=== PATIENT | female | born 1990 | race Caucasian/White ===

== ENCOUNTER 2023-09-26 08:12 | Emergency (ER) | payer OTHER, SELFPAY ==
[2023-09-26] VITALS (12 sets, daily range): BP systolic 121–132; BP diastolic 67–79; PULSE 73–96; RESP 11–24; TEMP 36.4; O2SAT 100
--- NOTE | ~2023-09-26 | CT_ITS ---
EXAMINATION: CTA chest PE protocol DATE: 09/26/2023 10:10 AUDIO VISUAL TECHNICIAN INDICATION: Left-sided chest pain. Elevated d-dimer. TECHNIQUE: Computed tomographic angiography (CTA) of the chest was performed with 100 mL Omnipaque-35 0 intravenous contrast. The dose-length product was 245.34 mGy-cm. Maximum intensity projection 3D-re constructions of the aorta and other arteries were constructed by the technologist on a separate work station. COMPARISON: None. FINDINGS: Study technically limited due to contrast bolus timing. No large central pulmonary embolism . Heart size normal. No significant pleural or pericardial effusion. No thoracic lymphadenopathy. Upp er abdomen is unremarkable. No focal airspace disease. No soft tissue abnormality. IMPRESSION: 1. No acute cardiopulmonary disease. No large central pulmonary embolism. Evaluation of the periphera l pulmonary arteries limited due to contrast bolus timing. Reviewed, dictated and finalized at location A. O VISUAL TECHNICIAN IMPRESSION: 1. No acute cardiopulmonary disease. No large central pulmonary embolism. Evalu ation of the peripheral pulmonary arteries limited due to contrast bolus timing .
--- NOTE | ~2023-09-26 | XR_ITS ---
EXAMINATION: XR chest 1V portable 09/26/2023 08:36 INDICATION: Chest pain PROCEDURE: AP portable chest COMPARISON: No prior studies for comparison. FINDINGS: The lungs are clear. The cardiomediastinal silhouette is within normal limits. There are no pleural effusions. There is no pneumothorax suspected. IMPRESSION: 1: NO ACUTE CARDIOPULMONARY DISEASE. Reviewed, dictated and finalized at location A. GER OPERATIONS
--- NOTE | 2023-09-26 08:40 | ED.ARRPALP ---
HPI - Arrhythmia/Palpitations General Chief Complaint: Arrhythmia/Palpitations Stated Complaint: chest pain, racing heart Time Seen by Provider: 09/26/23 08:19 History of Present Illness HPI narrative: 33-year-old female presenting to the emergency department for evaluation of left-sided chest pain that she states has been ongoing constantly since yesterday. Patient had an episode of SVT yesterday and was at [facility]. Patient states that she did receive medications that converted her back to normal sinus rhythm. Last night patient states that she had some increased anxiety and feeling her heart was racing again so patient called EMS and presented to the emergency department by EMS. Upon arrival to emergency department if patient states that she is still having left-sided chest pain. Patient denies any associated shortness of breath. Patient denies any prior cardiac history and denies any use of methamphetamine or cocaine, patient does admit to THC use, patient denies daily alcohol use. Related Data Allergies Allergy/AdvReac Type Severity Reaction Status Date / Time Penicillins Allergy Unknown Verified 09/26/23 08:25 Review of Systems Review of Systems: All systems reviewed & are unremarkable except as noted in HPI and below Exam Narrative: APPEARANCE: Well appearing, no pain, no distress, well-nourished. HEAD: normocephalic, atraumatic. EYES: PERRLA/EOMI, conjunctivae clear. NOSE: Normal no drainage EARS:TMS clear with good light reflex. THROAT: Pharynx clear, no exudate. NECK: Supple. No adenopathy, no masses. RESPIRATORY: Airway patent, respirations nonlabored. Clear to auscultation bilaterally, no rales, rhonchi, wheezing. CARDIOVASCULAR: Regular rate and rhythm without murmurs rubs or gallops. ABDOMINAL: Soft, nontender, nondistended, normal bowel sounds MUSCULOSKELETAL: Moves all extremities. Strength/ROM intact, No edema, No calf tenderness. NEURO: Alert. Cranial nerves II through XII intact. Grossly intact SKIN: Warm, dry. Normal Color Course Course Emergency Course: 33 old female presenting to the emergency department for evaluation of persistent left-sided chest pain. EKG showed no evidence of acute STEMI in patient's troponin was negative. Patient states the pain has been ongoing for greater than 6 hours and troponin was still negative. Patient is afebrile with no leukocytosis and a stable hemoglobin, patient did have an elevated D-dimer but CTA showed no evidence of pulmonary embolism. Patient did test positive for cannabinoids. Patient and family were updated on the results of her workup. Patient described a possible viral syndrome the day before symptoms started. Symptoms may be consistent with pleurisy, no concern for ACS or pulmonary embolism. Patient was encouraged to have close follow-up with primary care physician and was educated on reasons to return to the emergency department. Vital Signs Vital signs: Vital Signs Temperature 97.5 F L 09/26/23 08:11 Pulse Rate 79 09/26/23 08:11 Respiratory Rate 14 09/26/23 08:11 Blood Pressure 122/77 09/26/23 08:11 Pulse Oximetry 100 09/26/23 08:11 Oxygen Delivery Room Air 09/26/23 08:11 Temperature 97.5 F L 09/26/23 08:11 Pulse Rate 81 09/26/23 10:30 Respiratory Rate 21 H 09/26/23 10:30 Blood Pressure 132/67 09/26/23 09:32 Pulse Oximetry 100 09/26/23 10:30 Oxygen Delivery Room Air 09/26/23 08:11 MDM - Arrhythmia/Palpitations Lab Data Attestation: I reviewed the patient's lab results. 09/26/23 08:47 09/26/23 08:47 Labs: Lab Results 09/26/23 09/26/23 Range/Units 08:47 08:49 WBC 6.9 (4.5-10.0) K/mm3 RBC 4.02 L (4.2-5.4) M/mm3 Hgb 11.8 L (12.0-15.0) g/dL Hct 34.8 L (37.0-47.0) % MCV 86.6 (80-100) fl MCH 29.4 (26-34) pg MCHC 33.9 (32-36) g/dl RDW 13.0 (11.5-14.5) % Plt Count 213 (150-375) k/mm3 MPV 11.8 H (7.4-10.4) fl Immatu
[2023-09-26] MEDS: SODIUM CHLORIDE 0.9% IV 1,000 ML 999 ML IV CONT (08:54)
[2023-09-26 08:59] LABS: Basophils Absolute Auto 0.1 K/mm3 (0.0-0.1); Basophils Percent Auto 1.2 % (0.2-1.2); Eosinophils Absolute Auto 0.3 K/mm3 (0-0.3); Eosinophils Percent Auto 4.9 % (0-4.4); Hematocrit 34.8 % (37.0-47.0); Hemoglobin 11.8 g/dL (12.0-15.0); Immature Granulocyte Absolute 0.02 K/mm3 (0.00-0.031); Immature Granulocyte Percent A 0.3 % (0-0.5); Lymphocytes Absolute Auto 1.96 K/mm3 (0.9-3.2); Lymphocytes Percent Auto 28.4 % (18.3-44.2); Mean Corpuscular HGB Conc 33.9 g/dl (32-36); Mean Corpuscular Hemoglobin 29.4 pg (26-34); Mean Corpuscular Volume 86.6 fl (80-100); Mean Platelet Volume 11.8 fl (7.4-10.4); Monocytes Absolute Auto 0.5 K/mm3 (0.1-0.6); Monocytes Percent Auto 7.1 % (2.6-8.5); Neutrophils Percent Auto 58.1 % (45.5-73.1); Platelet Count Result 213 k/mm3 (150-375); Red Blood Count 4.02 M/mm3 (4.2-5.4); White Blood Count 6.9 K/mm3 (4.5-10.0)
[2023-09-26 09:07] LABS: Alanine Aminotransferase 14 U/L (6-35); Albumin Level 4.1 g/dL (3.5-5.1); Alkaline Phosphatase 73 U/L (38-126); Anion Gap 9 mmol/L (8-16); Aspartate Amino Transferase 23 U/L (14-36); Bilirubin,Total 0.9 mg/dL (0.2-1.3); Blood Urea Nitrogen 11 mg/dL (7-17); Calcium 8.8 mg/dL (8.4-10.2); Carbon Dioxide 21 mmol/L (22-30); Chloride 108 mmol/L (98-107); Estimated CRCL calculation 105 ml/min; Estimated Glomerular Filt Rate > 60; Glucose 89 mg/dL (65-110); Magnesium 1.8 mg/dL (1.6-2.3); Potassium 3.3 mmol/L (3.4-5.0); Sodium 138 mmol/L (137-145)
[2023-09-26 09:18] LABS: D Dimer 0.58 ug/mL (<0.48); Troponin I < 0.012 ng/mL (0.000-0.034)
[2023-09-26 09:20] LABS: Amphetamine Screen Urine Negative (Negative); Barbiturate Screen Urine Negative (Negative); Benzodiazepines Screen Urine Negative (Negative); Cannabinoid Screen Urine Positive (Negative); Cocaine Screen Urine Negative (Negative); Methadone Screen Urine Negative (Negative); Opiate Screen Urine Negative (Negative); Phencyclidine Screen Urine Negative (Negative)
--- NOTE | 2023-09-26 09:46 | PC.NURSE ---
PATIENT REFUSED COVID SWAB. WAS TESTED YESTERDAY AT [facility] AND IT WAS NEGATIVE. PROVIDER AWARE
[2023-09-26 09:47] LABS: Thyroid Stimulating Hormone Reflex 0.417 uIU/mL (0.465-4.68)
[2023-09-26 10:30] LABS: Free T4 Free Thyroxine Reflex 1.36 ng/dL (0.78-2.19)
--- NOTE | 2023-09-27 09:18 | ECG_ITS ---
Measurements Intervals [place] Rate: 75 P: 49 AL: 133 QRS: 73 QRSD: 98 T: 61 QT: 408 QTc: 459 Interpretive Statements SINUS RHYTHM POSSIBLE LEFT ATRIAL ENLARGEMENT BASELINE WANDER- I, II BORDERLINE ECG NO PREVIOUS ECG AVAILABLE FOR COMPARISON Electronically Signed On 09-27-2023 10:01:48 SOCIAL SCIENTIST by Max Benites D.O.
== END 2023-09-26 11:05 | disposition home or self-care (01) ==
PROVIDERS: Emergency Provider Emergency Medicine
DX: R07.9 Chest pain, unspecified (principal); R94.31 Abnormal electrocardiogram [ECG] [EKG]
CPT/HCPCS: 36415; 71045; 71275; 80053; 80307; 83735; 84439; 84443; 84480; 84484; 85025; 85380; 93005; 99284; J7030; Q9967

== ENCOUNTER 2023-10-14 08:20 | Emergency (ER) | payer OTHER, SELFPAY ==
[2023-10-14 08:28] VITALS: BP 117/74; PULSE 87; RESP 14; TEMP 37.5; O2SAT 100
--- NOTE | 2023-10-14 08:51 | ED.GENADULT ---
HPI - General Adult General Chief complaint: Skin/Abscess/Foreign Body Stated complaint: bump under chin Time Seen by Provider: 10/14/23 08:52 Source: patient, RN notes reviewed and old records reviewed Mode of arrival: ambulatory Limitations: no limitations History of Present Illness HPI narrative: 33-year-old female presents to the [facility] with concerns for a bump under her chin since yesterday reports it is being very painful. Patient reports that she called her primary care provider and was told to be evaluated. Reports it is feeling very hot. Reports that it his ?doubled in size since yesterday. Onset (ago): day(s) (1) Related Data Home Medications Medication Instructions Recorded Confirmed aspirin 81 mg tablet,delayed 81 mg PO DAILY 10/14/23 10/14/23 release (Enteric Coated Aspirin) diltiazem HCl 30 mg tablet 30 mg PO TID 10/14/23 10/14/23 hydroxyzine pamoate 25 mg capsule 25 mg PO TID 10/14/23 10/14/23 Allergies Allergy/AdvReac Type Severity Reaction Status Date / Time amoxicillin Allergy Severe Swelling Verified 10/14/23 08:54 of Lip/Tongue/Throat Penicillins Allergy Severe Swelling Verified 10/14/23 08:53 of Lip/Tongue/Throat Review of Systems Review of Systems: All systems reviewed & are unremarkable except as noted in HPI and below Constitutional: Constitutional: Reports no additional constitutional complaints Eyes: Eyes: Reports no additional eye complaints ENT: Reports as per HPI Cardiovascular: Cardiovascular: Reports no additional cardiovascular complaints, Denies chest pain and Denies dyspnea Respiratory: Respiratory: Reports no additional respiratory complaints, Denies chest congestion, Denies cough and Denies dyspnea Gastrointestinal: Gastrointestinal: Reports no additional gastrointestinal complaints, Denies abdominal pain, Denies nausea and Denies vomiting Musculoskeletal: Musculoskeletal: Reports no additional musculoskeletal complaints Integumentary/Breasts: Skin/Breast: Reports system reviewed and no additional complaints, except as docu Neurologic: Reports system reviewed and no additional complaints, except as documented Psychiatric: Psychiatric: Reports no additional psychiatric complaints Allergic/Immunologic: Allergic/Immunologic: Reports no additional allergic/immunologic complaints [facility] Social History Social History Substance use type: marijuana Living arrangements: with family Gender identity (if verbalized by the patient): Female Comments At the time of my signature, I reviewed and agree with the nursing past medical, surgical, social, and family history. There is no relevant family history pertinent to the patient complaint. Exam Const: General: cooperative, healthy appearing, no acute distress, well developed, alert, anxious, uncomfortable and well nourished Nutritional Appearance: well nourished Orientation/consciousness: patient oriented x3 Limitations: no limitations HENMT: Head: normal to inspection Ears: hearing grossly normal bilaterally, external ears normal, TM's normal bilaterally, EAC's normal, mastoids normal and no periauricular adenopathy Face/Nose/Sinus: Normal external nose present, Normal nares present, Normal nasal mucous membranes and turbinates present, normal facial exam and face symmetric Face and sinus: normal facial exam and face symmetric Mouth: Yes Normal oral and palatal mucosa present, Yes lip normal, Yes moist mucous membranes and No muffled voice Throat: posterior oropharynx normal, tonsils normal, uvula midline and no uvular edema Eyes: General: appearance normal, both eyes and all related structures Alignment and Position: alignment normal Periorbital: periorbital findings normal Pupils: Equal, round and reactive pupils present EOM: EOMs intact bilaterally Neck: Neck: normal visual inspection, full ROM, no lymphadenopathy and no meningeal signs
== END 2023-10-14 09:07 | disposition short-term general hospital (02) ==
LOC: EXPBETH 08:24
PROVIDERS: Emergency Provider Nurse Practitioner
DX: K11.9 Disease of salivary gland, unspecified (principal); F12.90 Cannabis use, unspecified, uncomplicated; Z79.82 Long term (current) use of aspirin
CPT/HCPCS: 99212; G0463

== ENCOUNTER 2023-10-24 14:34 | Emergency (ER) | payer OTHER, SELFPAY ==
[2023-10-24 14:58] VITALS: BP 142/85; PULSE 94; RESP 20; TEMP 37.4; O2SAT 100
--- NOTE | 2023-10-24 15:28 | ED.DENTAL ---
HPI - Dental/Oral General Chief complaint: Dental/Oral Stated complaint: [place] tooth causing pain Time Seen by Provider: 10/24/23 15:28 Source: patient, RN notes reviewed and old records reviewed Mode of arrival: ambulatory Limitations: no limitations History of Present Illness HPI Narrative: 33 year old female who presents to [facility] care with complaints of dental pain to left lower most posterior molar for 1 month duration. Patient was seen her 10 days ago for swollen lymph node to left neck but reports coldn't find cause. Patient states that she does have dentist to follow up with. Patient reports that she has not taken any OTC medications for her discomfort, nor has she applied any ice, doesn't like to take medication she states MD Complaint: tooth pain Location: Tooth # (17) Onset (ago): month(s) (1) Severity: moderate Severity scale (1-10): 6 Treatment prior to arrival: none Related Data Home Medications Medication Instructions Recorded Confirmed aspirin 81 mg tablet,delayed 81 mg PO DAILY 10/14/23 10/14/23 release (Enteric Coated Aspirin) diltiazem HCl 30 mg tablet 30 mg PO TID 10/14/23 10/14/23 hydroxyzine pamoate 25 mg capsule 25 mg PO TID 10/14/23 10/14/23 Allergies Allergy/AdvReac Type Severity Reaction Status Date / Time amoxicillin Allergy Severe Swelling Verified 10/14/23 08:54 of Lip/Tongue/Throat Penicillins Allergy Severe Swelling Verified 10/14/23 08:53 of Lip/Tongue/Throat Review of Systems Review of Systems: CONSTITUTIONAL: Denies fever, chills, or sweats.pain to left lower most posterior molar with noted caries to tooth and some facial pain voiced also ENT: Denies rhinorrhea, congestion, sore throat, or otalgia. Reports dental pain CARDIOVASCULAR: Denies chest pain, palpitations, or edema. RESPIRATORY: Denies cough or dyspnea. SKIN: Denies rash or itching. MUSCULOSKELETAL: Denies myalgia. NEUROLOGIC: Denies headache All systems reviewed & are unremarkable except as noted in HPI and below PMFSH Past Medical History Medical History (Updated 10/25/23 @ 22:41 by Lisette Fonseca NP) Anxiety Hypertension SVT (supraventricular tachycardia) Surgical History Surgical History (Updated 10/25/23 @ 22:41 by Lisette Fonseca NP) History of partial hysterectomy Social History Social History (Updated 10/25/23 @ 22:42 by Lisette Fonseca NP) Smoking status: Unknown if ever smoked Substance use type: marijuana Living arrangements: with family Gender identity (if verbalized by the patient): Female Comments At time of signature, agree with nursing past medical, surgical, social and family history. There is no relevant family history pertinent to the presenting complaint Exam Narrative: GENERAL: Well-appearing, well-nourished, and in no acute distress. HEAD: Normocephalic, atraumatic. EYES: PERRLA and EOMI. ENT: Nares clear, no rhinorrhea or epistaxis. Mucous membranes moist. Left lower most posterior molar#17 with noted caries, some redness to gum and swelling, no trismus or any Hung angina noted. Reports some discomfort to the left side of her face with no swelling noted. NECK: Supple.no lymphadenopathy CHEST: Clear to auscultation. No respiratory distress. no cough SAO2 100% on room air HEART: Regular rate and rhythm. No murmur heard. Normal peripheral pulses. SKIN: Warm, dry, no rash. NEURO: No focal deficits. Alert and oriented x3. Course Course Emergency Course: Patient is aware of diagnosis, understands and agrees to treatment plan. Anticipatory guidance given. Patient agrees to follow-up as directed and is aware of reasons to seek care at the emergency department. Portions of this record may have been created with voice recognition software Level of Care: Express Care Visit Vital Signs Vital signs: Vital Signs Temperature 37.4 C 10/24/23 14:58 Pulse Rate 94 10/24/23 14:58 Respiratory Rate 20 10/24/23 14:58 Blood Pr
== END 2023-10-24 15:58 | disposition home or self-care (01) ==
PROVIDERS: Emergency Provider Registered Nurse
DX: K04.7 Periapical abscess without sinus (principal); I10 Essential (primary) hypertension; F41.9 Anxiety disorder, unspecified; Z79.82 Long term (current) use of aspirin; Z90.711 Acquired absence of uterus with remaining cervical stump; F12.90 Cannabis use, unspecified, uncomplicated
CPT/HCPCS: 99213; G0463

== ENCOUNTER 2024-03-11 08:15 | Emergency (ER) | payer OTHER, SELFPAY ==
--- NOTE | ~2024-03-11 | XR_ITS ---
EXAMINATION: XR chest 2V DATE: 03/11/2024 08:53 INDICATION: Chest pain and weakness TECHNIQUE: PA and lateral views of the chest were obtained. COMPARISON: Chest radiograph dated 09/26/2023 FINDINGS: There are bands resulting in artifactual appearance of nodular opacities project over the bilateral u pper lungs on the initial image. These removed and the lungs are clear on the subsequent image with n o focal airspace opacities, pulmonary edema, pleural effusion or pneumothorax. The cardiomediastinal silhouette is normal. Visualized bones and soft tissues are unremarkable. IMPRESSION: 1. Normal chest radiograph. Reviewed, dictated and finalized at location A. IMPRESSION: 1. Normal chest radiograph.
--- NOTE | 2024-03-11 08:21 | ECG_ITS ---
Test Date: 2024-03-11 08:24:11 Measurements Intervals [place] Rate: 67 P: 58 CO: 149 QRS: 66 QRSD: 84 T: 48 QT: 414 QTc: 439 Interpretive Statements SINUS RHYTHM NORMAL ECG No previous ECG available for comparison Electronically Signed On 03-11-2024 10:00:25 CDT by Max Benites D.O.
[2024-03-11 08:28] VITALS: BP 129/82; PULSE 88; RESP 16; TEMP 36.5; O2SAT 100
[2024-03-11 08:30] VITALS: BP 124/82; PULSE 79; RESP 18; O2SAT 100
--- NOTE | 2024-03-11 08:38 | ED.GENADULT ---
HPI - General Adult General Chief complaint: Weakness Stated complaint: dizzy/weak, diaphoretic Time Seen by Provider: 03/11/24 08:22 History of Present Illness HPI narrative: patient 33-year-old female who presents emergency department with chief complaint of weakness and palpitations. Patient reports she has prior history of SVT woke up this morning feeling extremely tired and thought that her heart rate was fast of the patient used her pulse oximeter and it showed that her heart rate was in the 150s the patient states that she did get a little sweaty when this happened called EMS the time EMS arrived her heart rate was in the 90s. Patient states she feels tired and run down at this point she does report that she takes verapamil for SVT and is followed by cardiology at [place] Related Data Home Medications Medication Instructions Recorded Confirmed aspirin 81 mg tablet,delayed 81 mg PO DAILY 10/14/23 10/14/23 release (Enteric Coated Aspirin) diltiazem HCl 30 mg tablet 30 mg PO TID 10/14/23 10/14/23 hydroxyzine pamoate 25 mg capsule 25 mg PO TID 10/14/23 10/14/23 Allergies Allergy/AdvReac Type Severity Reaction Status Date / Time amoxicillin Allergy Severe Swelling Verified 10/14/23 08:54 of Lip/Tongue/Throat Penicillins Allergy Severe Swelling Verified 10/14/23 08:53 of Lip/Tongue/Throat Review of Systems Review of Systems: A 10 system review of systems was completed on the patient and is negative except for what is stated in the HPI. Nursing and ancillary documentation was reviewed. [facility] Past Medical History Medical History Anxiety Hypertension SVT (supraventricular tachycardia) Surgical History Surgical History History of partial hysterectomy Social History Social History Smoking status: Unknown if ever smoked Substance use type: marijuana Living arrangements: with family Gender identity (if verbalized by the patient): Female Exam Narrative: GENERAL: Well-appearing, well-nourished, and in no acute distress. HEAD: Normocephalic, atraumatic. EYES: PERRLA and EOMI. ENT: Nares clear, no rhinorrhea or epistaxis. Mucous membranes moist. NECK: Supple. CHEST: Clear to auscultation. No respiratory distress. HEART: Regular rate and rhythm. No murmur heard. Normal peripheral pulses. ABDOMEN: Soft, nontender, nondistended, normal active bowel sounds. EXTREMITIES: Normal range of motion. No edema. SKIN: Warm, dry, no rash. NEURO: No focal deficits. Alert and oriented x3. PSYCH: Normal mood and affect. Course Vital Signs Vital signs: Vital Signs Temperature 36.5 C 03/11/24 08:28 Pulse Rate 88 03/11/24 08:28 Respiratory Rate 16 03/11/24 08:28 Blood Pressure 129/82 03/11/24 08:28 Pulse Oximetry 100 03/11/24 08:28 Oxygen Delivery Room Air 03/11/24 08:28 Temperature 36.6 C 03/11/24 09:24 Pulse Rate 84 03/11/24 09:24 Respiratory Rate 16 03/11/24 09:24 Blood Pressure 126/83 03/11/24 09:24 Pulse Oximetry 100 03/11/24 09:24 Oxygen Delivery Room Air 03/11/24 08:28 Medical Decision Making MDM Narrative Medical decision making narrative: differential diagnosis includes palpitations, dysrhythmia, electrolyte abnormality laboratory studies were obtained which showed a potassium of 3.6 magnesium was 1.7 the patient was ordered 40 of p.o. potassium in the emergency department and also has ordered for IV magnesium the patient opted to not take the magnesium. the urinalysis showed no evidence UTI EKG showed no acute ischemic changes chest x-ray showed no focal infiltrates. Vital Signs Vital Signs: Vital Signs Temperature 36.5 C 03/11/24 08:28 Pulse Rate 88 03/11/24 08:28 Respiratory Rate 16 03/11/24 08:28
[2024-03-11 08:55] LABS: Basophils Absolute Auto 0.1 K/mm3 (0.0-0.1); Basophils Percent Auto 0.9 % (0.2-1.2); Eosinophils Absolute Auto 0.2 K/mm3 (0-0.3); Hematocrit 40.4 % (37.0-47.0); Immature Granulocyte Absolute 0.02 K/mm3 (0.00-0.031); Immature Granulocyte Percent A 0.3 % (0-0.5); Lymphocytes Absolute Auto 1.24 K/mm3 (0.9-3.2); Lymphocytes Percent Auto 18.9 % (18.3-44.2); Mean Corpuscular HGB Conc 34.7 g/dl (32-36); Mean Corpuscular Hemoglobin 29.4 pg (26-34); Mean Corpuscular Volume 84.7 fl (80-100); Mean Platelet Volume 11.3 fl (7.4-10.4); Monocytes Absolute Auto 0.4 K/mm3 (0.1-0.6); Monocytes Percent Auto 6.4 % (2.6-8.5); Neutrophils Absolute Auto 4.6 K/mm3 (1.3-6.7); Neutrophils Percent Auto 70.5 % (45.5-73.1); Platelet Count Result 225 k/mm3 (150-375); Red Blood Count 4.77 M/mm3 (4.2-5.4); Red Cell Distribution Width 12.8 % (11.5-14.5); White Blood Count 6.6 K/mm3 (4.5-10.0)
[2024-03-11] MEDS: SODIUM CHLORIDE 0.9% IV 1,000 ML 999 ML IV CONT (09:04)
[2024-03-11 09:06] LABS: Alanine Aminotransferase 20 U/L (6-35); Albumin Level 4.7 g/dL (3.5-5.1); Alkaline Phosphatase 74 U/L (38-126); Anion Gap 12 mmol/L (4-12); Aspartate Amino Transferase 24 U/L (14-36); Bilirubin,Total 0.9 mg/dL (0.2-1.3); Blood Urea Nitrogen 9 mg/dL (7-17); Calcium 9.2 mg/dL (8.4-10.2); Carbon Dioxide 25 mmol/L (22-30); Chloride 103 mmol/L (98-107); Estimated CRCL calculation 128 ml/min; Estimated Glomerular Filt Rate > 60; Glucose 98 mg/dL (65-110); Potassium 3.6 mmol/L (3.4-5.0); Sodium 140 mmol/L (137-145)
[2024-03-11 09:12] LABS: Magnesium 1.7 mg/dL (1.6-2.3)
[2024-03-11 09:24] VITALS: BP 126/63; BP 126/83; PULSE 71; PULSE 84; RESP 16; TEMP 36.6; O2SAT 100
[2024-03-11] MEDS: POTASSIUM CHLORIDE 20 MEQ PACKET (FOR LIQUID) 40 MEQ PO (09:52)
--- NOTE | 2024-03-11 09:57 | PC.NURSE ---
refused magnesium reports it causes her diarrhea and she has had diarrhea
[2024-03-11 10:00] LABS: Appearance Urine Cloudy (Clear); Bacteria Urine 3+ /hpf; Bilirubin Urine Negative (Negative); Blood Urine 1+ (Negative); Color Urine Yellow (Yellow); Glucose Urine UA Negative (Negative); Ketones Urine 1+ mg/dL (Negative); Leukocyte Esterase Ur Negative LEU/UL (Negative); Need Manual Microscopic Reviewed; Nitrate Urine Negative (Negative); Non Pathogenic Casts 0-2; Protein Urine Negative (Negative); RBC Urine 0-2 /hpf (0-2); Specific Grav Ur 1.002 (1.001-1.035); Squamous Epithelial Cell Urine Many /hpf (Few); Urobilinogen Urine 0.2 mg/dL (<2.0); WBC Urine 0-5 /hpf (0-3)
[2024-03-11 10:02] LABS: Add Urine Microscopic? YES
[2024-03-11 10:20] VITALS: BP 124/78; PULSE 82; RESP 16; TEMP 36.7; O2SAT 100
--- NOTE | 2024-03-11 10:29 | PCCCNOTE ---
Requested by nursing staff that pt be seen as she had requested a color checker roving or yarn. Met with pt and she is under a lot of stress as her 2 9 y/o twins are in [facility] with seizures from unknown origin. She lives in [place] with her BF and they have 6 children between them. His children are with them psychology department chair. Her son's father lives in [place] and has come to be with her hospitalized children while she gets a break. She's been independent from her parent since a young age and doesn't have contact with them. The paternal grandparents are or in [place] and elderly so can not help with any support. She is originally from [place] and has minimal to no social support in her current community. Her greatest concern, at this time, is her children and worried they haven't found the cause of their illness and have run minimal testing. It was recommended to her that she request to speak to a pt advocate at [facility] to see if they can advocate for her and her children. It was also recommended she ask to speak to care coordination there to see if they have a parent support group or respite area/facilities where she and their father can rest but still be close. She is medically stable and ready for discharge. She has a ride coming for her.
== END 2024-03-11 10:30 | disposition home or self-care (01) ==
PROVIDERS: Emergency Provider Emergency Medicine
DX: R00.2 Palpitations (principal); I10 Essential (primary) hypertension
CPT/HCPCS: 36415; 71046; 80053; 81001; 83735; 85025; 93005; 96360; 99283; A9270; J7030

== ENCOUNTER 2024-04-01 22:56 | Emergency (ER) | payer OTHER, SELFPAY ==
[2024-04-01 22:55] VITALS: BP 130/87; PULSE 101; RESP 18; TEMP 37.2; O2SAT 100
--- NOTE | 2024-04-01 22:58 | ECG_ITS ---
Test Date: 2024-04-01 23:01:02 Measurements Intervals [place] Rate: 99 P: 61 PA: 147 QRS: 61 QRSD: 86 T: 45 QT: 353 QTc: 453 Interpretive Statements SINUS RHYTHM WITHIN NORMAL LIMITS Compared to ECG 03/11/2024 08:24:11 HEART RATE IS INCREASED, NO OTHER SIGNIFICANT CHANGE Electronically Signed On 04-02-2024 09:03:44 CDT by Brayan Brooks M.D.
[2024-04-01 23:01] VITALS: PULSE 102
--- NOTE | 2024-04-01 23:16 | PC.NURSE ---
vrbo lipsmeyer - 1lns bolus x 1
[2024-04-01] MEDS: SODIUM CHLORIDE 0.9% IV 1,000 ML 999 ML IV CONT (23:17)
[2024-04-01 23:23] LABS: Basophils Absolute Auto 0.1 K/mm3 (0.0-0.1); Eosinophils Absolute Auto 0.3 K/mm3 (0-0.3); Hematocrit 36.3 % (37.0-47.0); Immature Granulocyte Absolute 0.02 K/mm3 (0.00-0.031); Immature Granulocyte Percent A 0.2 % (0-0.5); Lymphocytes Absolute Auto 2.09 K/mm3 (0.9-3.2); Mean Corpuscular HGB Conc 35.8 g/dl (32-36); Mean Corpuscular Hemoglobin 29.7 pg (26-34); Mean Corpuscular Volume 83.1 fl (80-100); Mean Platelet Volume 11.3 fl (7.4-10.4); Monocytes Absolute Auto 0.6 K/mm3 (0.1-0.6); Monocytes Percent Auto 7.1 % (2.6-8.5); Neutrophils Percent Auto 61.7 % (45.5-73.1); Platelet Count Result 222 k/mm3 (150-375); Red Blood Count 4.37 M/mm3 (4.2-5.4); White Blood Count 8.1 K/mm3 (4.5-10.0)
--- NOTE | 2024-04-01 23:23 | PC.NURSE ---
pt refused morphine - does not want anything that hard. erp lipsyer notified
[2024-04-01 23:25] LABS: Add Urine Microscopic? NO; Appearance Urine Clear (Clear); Bilirubin Urine Negative (Negative); Blood Urine Negative (Negative); Color Urine Yellow (Yellow); Glucose Urine UA Negative (Negative); Ketones Urine Negative (Negative); Leukocyte Esterase Ur Negative LEU/UL (Negative); Nitrate Urine Negative (Negative); Protein Urine Negative (Negative); Specific Grav Ur 1.012 (1.001-1.035); Urobilinogen Urine 0.2 mg/dL (<2.0)
[2024-04-01] MEDS: ACETAMINOPHEN 500 MG TABLET 1000 MG PO (23:27)
[2024-04-01 23:32] LABS: Magnesium 1.8 mg/dL (1.6-2.3)
[2024-04-01 23:33] LABS: Alanine Aminotransferase 18 U/L (6-35); Albumin Level 4.4 g/dL (3.5-5.1); Alkaline Phosphatase 67 U/L (38-126); Anion Gap 10 mmol/L (4-12); Aspartate Amino Transferase 20 U/L (14-36); Bilirubin,Total 0.3 mg/dL (0.2-1.3); Blood Urea Nitrogen 9 mg/dL (7-17); Calcium 9.1 mg/dL (8.4-10.2); Carbon Dioxide 24 mmol/L (22-30); Chloride 103 mmol/L (98-107); Estimated CRCL calculation 119 ml/min; Estimated Glomerular Filt Rate > 60; Glucose 122 mg/dL (65-110); Lipase 92 U/L (23-300); Potassium 3.3 mmol/L (3.4-5.0); Sodium 137 mmol/L (137-145)
[2024-04-01 23:36] LABS: Prothrombin Time 13.3 Seconds (11.1-14.7)
[2024-04-01 23:37] LABS: Partial Thromboplastin Time 30.5 Seconds (22.3-36.8)
[2024-04-01 23:42] LABS: NT Pro B Type Natriuretic Pept < 20 pg/mL (19.9-100)
--- NOTE | 2024-04-01 23:42 | ED.GENADULT ---
HPI - General Adult General Chief complaint: Chest Pain Stated complaint: chest pain Time Seen by Provider: 04/01/24 22:57 History of Present Illness HPI narrative: Patient 33-year-old female who presents emerged from with chief complaint of chest pain. Patient reports he has prior history of SVT reports that she started having pain in her chest that then radiated to her jaw area. The patient reports that she was given nitro by EMS they gave her headache was also given aspirin by EMS. The patient reports that the pain is not improved by anything reports that she has no prior history of ischemic disease. Related Data Home Medications Medication Instructions Recorded Confirmed aspirin 81 mg tablet,delayed 81 mg PO DAILY 10/14/23 10/14/23 release (Enteric Coated Aspirin) diltiazem HCl 30 mg tablet 30 mg PO TID 10/14/23 10/14/23 hydroxyzine pamoate 25 mg capsule 25 mg PO TID 10/14/23 10/14/23 Allergies Allergy/AdvReac Type Severity Reaction Status Date / Time amoxicillin Allergy Severe Swelling Verified 10/14/23 08:54 of Lip/Tongue/Throat Penicillins Allergy Severe Swelling Verified 10/14/23 08:53 of Lip/Tongue/Throat Review of Systems Review of Systems: A 10 system review of systems was completed on the patient and is negative except for what is stated in the HPI. Nursing and ancillary documentation was reviewed. [facility] Past Medical History Medical History Anxiety Hypertension SVT (supraventricular tachycardia) Surgical History Surgical History History of partial hysterectomy Social History Social History Smoking status: Unknown if ever smoked Substance use type: marijuana Living arrangements: with family Gender identity (if verbalized by the patient): Female Exam Narrative: GENERAL: Well-appearing, well-nourished, and in no acute distress. HEAD: Normocephalic, atraumatic. EYES: PERRLA and EOMI. ENT: Nares clear, no rhinorrhea or epistaxis. Mucous membranes moist. NECK: Supple. CHEST: Clear to auscultation. No respiratory distress. Chest wall is tender to palpation HEART: Regular rate and rhythm. No murmur heard. Normal peripheral pulses. ABDOMEN: Soft, nontender, nondistended, normal active bowel sounds. EXTREMITIES: Normal range of motion. No edema. SKIN: Warm, dry, no rash. NEURO: No focal deficits. Alert and oriented x3. PSYCH: Normal mood and affect. Course Vital Signs Vital signs: Vital Signs Temperature 37.2 C 04/01/24 22:55 Pulse Rate 101 H 04/01/24 22:55 Respiratory Rate 18 04/01/24 22:55 Blood Pressure 130/87 04/01/24 22:55 Pulse Oximetry 100 04/01/24 22:55 Oxygen Delivery Room Air 04/01/24 22:55 Temperature 37.2 C 04/01/24 22:55 Pulse Rate 102 H 04/01/24 23:01 Respiratory Rate 18 04/01/24 22:55 Blood Pressure 130/87 04/01/24 22:55 Pulse Oximetry 100 04/01/24 22:55 Oxygen Delivery Room Air 04/01/24 22:55 Medical Decision Making [facility] Narrative Medical decision making narrative: Differential diagnosis includes dysrhythmia, ACS, noncardiac chest pain EKG showed no acute ischemic changes Laboratory studies were obtained which showed a normal CBC normal CMP TSH was normal troponin was 0 hour and 3 hours Patient was observed in the emergency department is doing much better this time will be discharged home Vital Signs Vital Signs: Vital Signs Temperature 37.2 C 04/01/24 22:55 Pulse Rate 101 H 04/01/24 22:55 Respiratory Rate 18 04/01/24 22:55 Blood Pressure 130/87 04/01/24 22:55 Pulse Oximetry 100 04/01/24 22:55 Oxygen Delivery Room Air 04/01/24 22:55 Temperature 37.2 C 04/01/24 22:55 Pulse Rate 102 H 04/01/24 23:01 Respiratory Rate 18 04/01/24 22:55 Blood Pressure 130/
[2024-04-01 23:45] LABS: Troponin I < 0.012 ng/mL (0.000-0.034)
[2024-04-02 02:19] LABS: Troponin I < 0.012 ng/mL (0.000-0.034)
[2024-04-02 03:14] VITALS: BP 112/87; PULSE 68; RESP 16; TEMP 36.6; O2SAT 98
== END 2024-04-02 03:18 | disposition home or self-care (01) ==
PROVIDERS: Emergency Provider Emergency Medicine
DX: R07.89 Other chest pain (principal); I10 Essential (primary) hypertension; Z90.711 Acquired absence of uterus with remaining cervical stump; Z79.82 Long term (current) use of aspirin; Z79.899 Other long term (current) drug therapy
CPT/HCPCS: 36415; 80053; 81003; 83690; 83735; 83880; 84443; 84484; 85025; 85610; 85730; 93005; 96360; 99284; A9270; J7030

== ENCOUNTER 2024-04-03 17:16 | Emergency (ER) | payer OTHER, SELFPAY ==
--- NOTE | ~2024-04-03 | XR_ITS ---
EXAMINATION: XR chest 2V Exam Date/Time: 04/03/2024 17:55 CDT HISTORY: PALPATATIONS Comparison: 03/11/2024. RESULT: Lines, tubes, and devices: None. Lungs and pleura: Clear. Cardiomediastinal silhouette: Stable. Other: No acute osseous or upper abdominal finding. IMPRESSION: No acute cardiopulmonary process. Reviewed, dictated and finalized at location K.
--- NOTE | 2024-04-03 17:20 | ECG_ITS ---
Test Date: 2024-04-03 17:25:00 Measurements Intervals [place] Rate: P: AR: QRS: QRSD: T: QT: QTc: Interpretive Statements SINUS RHYTHM POSSIBLE LEFT ATRIAL ENLARGEMETN NONSPECIFIC ST AND T WAVE ABNORMALITY Electronically Signed On 04-04-2024 14:35:21 CDT by Collette Winston M.D.
[2024-04-03 17:27] VITALS: BP 124/76; PULSE 90; RESP 20; TEMP 36.6; O2SAT 100
--- NOTE | 2024-04-03 17:30 | ED.CHESTPAIN ---
HPI - Chest Pain General Chief Complaint: Arrhythmia/Palpitations <RENA Gutierrez Last Filed: 04/03/24 17:38> Stated Complaint: CHEST PAIN SINCE 1529 <RENA Gutierrez Last Filed: 04/03/24 17:38> Time Seen by Provider: 04/03/24 17:30 <RENA Gutierrez Last Filed: 04/03/24 17:38> Focused HPI: Patient is a 33 y/o female who presents to the ED with c/o CP and palpitations. Patient reports around 4pm today, she began feeling palpitations. States she checked her pulse and her HR was anywhere from 70-130bpm. She then began having pain in her midsternal chest, radiating into her L shoulder, L arm, L sided pain. Pain has intermittent, described as a pressure, tightness, and squeezing sensation. States she develops cold sweats and shortness of breath when the pain becomes severe. Denies lower ext pain or swelling. Patient has hx of SVT and is on verapamil. 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 Patient took ASA 81mg prior to arrival. GENERAL: Anxious-appearing, well-nourished, and in no acute distress. HEAD: Normocephalic, atraumatic. CHEST: Clear to auscultation. ?No respiratory distress. HEART: Regular rate and rhythm.? MSK: TTP over midsternal anterior chest wall, reproducing pain. NEURO: ?Alert and oriented x3. PSYCHIATRIC: Anxious, tearful. Patient screened in triage and initial orders placed.? ?Additional care and disposition to be based upon?diagnostic testing and treatment. <RENA Gutierrez Last Filed: 04/03/24 17:38> Source: patient <RENA Gutierrez Last Filed: 04/03/24 17:38> Mode of arrival: ambulatory <RENA Gutierrez Last Filed: 04/03/24 17:38> Limitations: no limitations <RENA Gutierrez Last Filed: 04/03/24 17:38> Related Data Home Medications: Home Medications Medication Instructions Recorded Confirmed aspirin 81 mg tablet,delayed 81 mg PO DAILY 10/14/23 10/14/23 release (Enteric Coated Aspirin) diltiazem HCl 30 mg tablet 30 mg PO TID 10/14/23 10/14/23 hydroxyzine pamoate 25 mg capsule 25 mg PO TID 10/14/23 10/14/23 <RENA Gutierrez Last Filed: 04/03/24 17:38> Allergies/Adverse Reactions: Allergies Allergy/AdvReac Type Severity Reaction Status Date / Time amoxicillin Allergy Severe Swelling Verified 10/14/23 08:54 of Lip/Tongue/Throat Penicillins Allergy Severe Swelling Verified 10/14/23 08:53 of Lip/Tongue/Throat <RENA Gutierrez Last Filed: 04/03/24 17:38> Review of Systems Review of Systems: All systems as dictated in HPI <RENA Holland Last Filed: 04/04/24 02:25> PMFSH Past Medical History Medical History: Medical History Anxiety Hypertension SVT (supraventricular tachycardia) <RENA Gutierrez Last Filed: 04/03/24 17:38> Surgical History Surgical History: Surgical History History of partial hysterectomy <RENA Gutierrez Last Filed: 04/03/24 17:38> Social History Social History: Social History Smoking status: Unknown if ever smoked Substance use type: marijuana Living arrangements: with family Gender identity (if verbalized by the patient): Female <RENA Gutierrez Last Filed: 04/03/24 17:38> Exam Narrative: GENERAL: Well-appearing, well-nourished, and in no acute distress. HEAD: Normocephalic, atraumatic. EYES: PERRLA and EOMI. ENT: Nares clear, no rhinorrhea or epistaxis. Mucous membranes moist. Oropharynx without tonsillar hypertrophy exudate or other lesions. NECK: Supple. No adenopathy or masses. CHEST: No respiratory distress. Clear to auscultation. No wheezes rales or rhonchi HEART: Regular rate and rhythm. No
[2024-04-03 17:51] LABS: Basophils Absolute Auto 0.1 K/mm3 (0.0-0.1); Basophils Percent Auto 0.7 % (0.2-1.2); Eosinophils Absolute Auto 0.2 K/mm3 (0-0.3); Hematocrit 39.3 % (37.0-47.0); Hemoglobin 13.5 g/dL (12.0-15.0); Immature Granulocyte Absolute 0.03 K/mm3 (0.00-0.031); Immature Granulocyte Percent A 0.3 % (0-0.5); Lymphocytes Absolute Auto 2.19 K/mm3 (0.9-3.2); Mean Corpuscular HGB Conc 34.4 g/dl (32-36); Mean Corpuscular Hemoglobin 28.8 pg (26-34); Mean Platelet Volume 11.1 fl (7.4-10.4); Monocytes Absolute Auto 0.6 K/mm3 (0.1-0.6); Monocytes Percent Auto 5.7 % (2.6-8.5); Neutrophils Absolute Auto 6.9 K/mm3 (1.3-6.7); Neutrophils Percent Auto 69.3 % (45.5-73.1); Platelet Count Result 255 k/mm3 (150-375); Red Blood Count 4.68 M/mm3 (4.2-5.4); White Blood Count 9.9 K/mm3 (4.5-10.0)
[2024-04-03 18:06] LABS: Alanine Aminotransferase 22 U/L (6-35); Albumin Level 4.7 g/dL (3.5-5.1); Alkaline Phosphatase 96 U/L (38-126); Anion Gap 13 mmol/L (4-12); Aspartate Amino Transferase 27 U/L (14-36); Bilirubin,Total 0.5 mg/dL (0.2-1.3); Blood Urea Nitrogen 11 mg/dL (7-17); Calcium 9.4 mg/dL (8.4-10.2); Carbon Dioxide 23 mmol/L (22-30); Chloride 100 mmol/L (98-107); Estimated CRCL calculation 105 ml/min; Estimated Glomerular Filt Rate > 60; Glucose 91 mg/dL (65-110); Lipase 75 U/L (23-300); Potassium 3.4 mmol/L (3.4-5.0); Sodium 136 mmol/L (137-145)
[2024-04-03 18:09] LABS: INR 1.1
[2024-04-03 18:10] LABS: Partial Thromboplastin Time 28.9 Seconds (22.3-36.8)
[2024-04-03 18:17] LABS: Troponin I < 0.012 ng/mL (0.000-0.034)
[2024-04-03 18:51] LABS: D Dimer 0.47 ug/mL (<0.48)
[2024-04-03 21:03] LABS: Troponin I < 0.012 ng/mL (0.000-0.034)
[2024-04-03] MEDS: ACETAMINOPHEN 500 MG TABLET 1000 MG PO (21:14)
[2024-04-03 21:24] VITALS: BP 123/79; PULSE 79; RESP 14; O2SAT 100
[2024-04-03 22:20] VITALS: BP 119/80; PULSE 80; RESP 14; O2SAT 100
--- NOTE | 2024-04-03 22:21 | PC.NURSE ---
Pt ambulated down the hallway and back and maintained an O2 sat of 100%. Pt denies any dizziness/lightheadedness.
== END 2024-04-03 22:32 | disposition home or self-care (01) ==
PROVIDERS: Emergency Medicine; Emergency Provider Physician Assistant
DX: R00.2 Palpitations (principal); R41.9 Unspecified symptoms and signs involving cognitive functions and awareness; I10 Essential (primary) hypertension; R94.31 Abnormal electrocardiogram [ECG] [EKG]
CPT/HCPCS: 36415; 71046; 80053; 83690; 84484; 85025; 85380; 85610; 85730; 93005; 99284; A9270